=== PATIENT | male | born 1995 ===

== ENCOUNTER → 2020-12-15 | Outpatient (CLI) | payer BC | LOC: ZCOL.LAB 12:08 → COL.LAB 12:08 | DX: Z20.822 Contact with and (suspected) exposure to COVID-19 (principal) ==

== ENCOUNTER → 2021-01-19 | Outpatient (CLI) | payer BC | LOC: ZCOL.LAB 11:46 | DX: Z20.822 Contact with and (suspected) exposure to COVID-19 (principal) ==